=== PATIENT | female | born 1955 | race Caucasian/White ===

== ENCOUNTER 2016-07-07 10:34 | Emergency (ER) | payer MEDICARE, MEDICAID ==
[~2016-07-07] VITALS: Ht 165.1 cm; Wt 70.5 kg
[~2016-07-07 10:34] MED LIST: ALBU8.5H2 IH; ATEN50TA PO; BECL8.7A5 INH; CYCL10TA9 PO; ESTR0.45 PO; HYDR-3825 PO; HYDR25TA4 PO; LORA0.5T PO; MIRT15TA6 PO; OMEP-113 PO; SERT100T9 PO
[2016-07-07 10:47] VITALS: BP 179/80; PULSE 65; RESP 18; O2SAT 98
[2016-07-07] MEDS ORDERED: 0.9% Sodium Chloride 1,000 ML IV ONE (10:48)
[2016-07-07] MEDS ORDERED: HYDROmorphone 0.5 mg/0.5 mL iSecure Syringe IVPUSH PRN (10:50)
[2016-07-07] MEDS ORDERED: Ondansetron 2 mg/mL 2 mL Inj IVPUSH ONE (10:50)
--- NOTE | 2016-07-07 10:50 | ED.REPORT ---
HPI-Abd Pain F 40 and Over Date of Service Jul 07, 2016 ED Provider: Bjorn Butterfield MD This is a 60 year old female with a history of hiatal hernia and diverticulitis presenting to the ED via EMS complaining of epigastric abdominal pain that began 2 hours ago. Pt woke up with mild abdominal pain and cold symptoms including nasal congestion. Abdominal pain continued to progressively worsen with migration to the left side. She had one episode emesis en route. Denies chest pain, diarrhea, dysuria, hematemesis, hematochezia, constipation, fever, or chills. Abdominal pain is improved in the ED. Denies similar symptoms previously. Nursing Notes Stated Complaint: ABD PAIN/NAUSEA/VOMITING Chief Complaint: Female Abdominal Pain Nursing Notes Reviewed: Yes Allergies: Coded Allergies: NSAIDS (Non-Steroidal Anti-Inflamma (Verified Allergy, Unknown, 07/21/14) aspirin (Verified Allergy, Unknown, 07/21/14) bupropion (Verified Allergy, Unknown, 07/21/14) fluoxetine (Verified Allergy, Unknown, 07/21/14) Scheduled Atenolol (Atenolol) 50 Mg Tablet 50 MG PO DAILY Beclomethasone Dipropionate (Qvar) 8.7 Gm Aer.w.adap 1 PUFF INH BID Estrogens, Conjugated (Premarin) 0.45 Mg Tablet 0.45 MG PO DAILY Hydrochlorothiazide (Hydrochlorothiazide) 25 Mg Tablet 25 MG PO DAILY Hydrocodone-Acetaminophen 7.5-325 mg (Hydrocodone-Acetaminophen 7.5-325 mg) 1 Each Tablet 1-2 EACH PO QID Lorazepam (Lorazepam) 0.5 Mg Tablet 0.5 MG PO BID Mirtazapine (Mirtazapine) 15 Mg Tablet 15 MG PO HS Omeprazole Magnesium (Omeprazole) 20 Mg Capsule.dr 40 MG PO DAILY Sertraline HCl (Sertraline) 100 Mg Tablet 100 MG PO DAILY 1.5 TABS DAILY Scheduled PRN Albuterol HFA (Proair HFA) 8.5 Gm Hfa.aer.ad 2 PUFFS IH Q4 PRN PRN For Shortness of Breath Cyclobenzaprine (Cyclobenzaprine) 10 Mg Tablet 10 MG PO TID PRN PRN For Pain Ondansetron ODT (Zofran ODT) 4 Mg Tablet 4 MG PO Q4H PRN PRN For Nausea General Time Seen by MD: 10:47 Chief Complaint Abdominal pain Hx Obtained From: Patient Arrived By: Walk-in Sudden in Onset?: Yes Onset Occurred: 1 - 4 hours ago Symptom Duration: Since onset Severity: Current: Moderate Pertinent Negative: Pt denies other symptoms Recent Healthcare: No recent doctor visit, No recent hospitalization Similar Sx Previous: No Past Medical History Past Medical History Diverticulitis Hiatal hernia Past Surgical History Reports: Appendectomy Smoking History Current Every Day Smoker Ambulatory Status Independent Review of Systems Constitutional: Denies: Chills, Fever Respiratory: Denies: Shortness of breath Cardiovascular: Denies: Chest pain GI: Reports: Abdominal pain, Vomiting, Denies: Constipation, Diarrhea, Hematemesis, Hematochezia, Nausea Female: Denies: Dysuria, Hematuria, Urinary frequency Complete sys rev & neg: except as marked. Physical Exam Vital Signs Vital Signs (First) Date Time Temp Pulse Resp B/P Pulse Ox O2 Delivery O2 Flow Rate FiO2 07/07/16 10:47 37.1 65 18 179/80 98 07/07/16 12:11 Room Air Initial VS: Reviewed Head / Eyes: Atraumatic, Normocephalic, PERRL ENT: Mucous membranes moist, Conjunctiva normal, No scleral icterus Neck: Supple, Non-tender, Full range of motion Extremities: Vascular intact, Neuro intact, No swelling, No tenderness Skin: Warm, Dry, No cyanosis Neurologic: Alert, Oriented, Nonfocal Psychiatric: Mood/affect normal, Behavior normal, Normal thought content General/Constitutional: Awake, Alert Respiratory / Chest: Breath sounds NL, Breath sounds = bilat, No respiratory distress, No rales, No rhonchi, No wheezing, No stridor Cardiovascular: Heart rate NL, Regular rhythm, Heart sounds NL, No gallop, No murmurs, No rubs, Peripheral circulation NL Abdomen: Atraumatic, Soft, Non-tender, McBurney's non-tender, No guarding, No rebound, BS normoactive Back: Inspection NL, Non-tender, No CVA tenderness Interpretation & Diagnostics Lab Results Interpretation Result Diagram: 07/07/16 1100 07/07/16 1100 Test 07/07/16 11:00 White Blood Count 8.0th/mm3 (3.8-10.1) Red Blood Count 3.87mil/mm3 (3.90-5.20) Hemoglobin 12.7g/dL (12.0-15.6) Hematocrit 37.5% (35.0-46.0) Mean Corpuscular Volume 96.9fL (81-100) Mean Corpuscular Hemoglobin 32.8pg (27.0-35.0) Mean Corpuscular Hemoglobin Concent 33.9% (32.0-37.0) Red Cell Distribution Width 12.5% (12.3-15.4) Platelet Count 265bil/L (150-400) Neutrophils (%) (Auto) 78.7% (40-74) Lymphocytes (%) (Auto) 14.9% (14-46) Monocytes (%) (Auto) 4.9% (4-12) Eosinophils (%) (Auto) 0.9% (0-5) Basophils (%) (Auto) 0.3% (0-3) Sodium Level 138mEq/L (134-144) Potassium Level 3.6mEq/L (3.5-5.2) Chloride Level 98mEq/L (97-108) Carbon Dioxide Level 23mmol/L (18-29) Blood Urea Nitrogen 11mg/dL (8-27) Creatinine 0.70mg/dL (0.57-1.00) Estimat Glomerular Filtration Rate 121mL/min (>59) Glucose Level 116mg/dL (60-99) Calcium Level 9.0mg/dL (8.5-10.1) Magnesium Level 1.8mg/dL (1.6-2.6) Total Bilirubin 0.3mg/dL (0.0-1.2) Aspartate Amino Transf (AST/SGOT) 24U/L (0-50) Alanine Aminotransferase (ALT/SGPT) 18U/L (0-32) Alkaline Phosphatase 82U/L (25-165) Total Protein 7.3g/dL (6.4-8.4) Albumin 4.0g/dL (3.4-5.0) Lipase 24U/L (13-60) Hold Roth Top Tube Received (Received) Re-Eval/Medical Decision Med Decision/Clinical Course This is a 60 year old female with a history of hiatal hernia and diverticulitis presenting to the ED via EMS complaining of epigastric abdominal pain that began 2 hours ago. Pt woke up with mild abdominal pain and cold symptoms including nasal congestion. Abdominal pain continued to progressively worsen with migration to the left side. She had one episode emesis en route. Denies chest pain, diarrhea, dysuria, hematemesis, hematochezia, constipation, fever, or chills. Abdominal pain is improved in the ED. Upon arrival the patient is afebrile with stable vital signs in no apparent distress. Of note she is somewhat tachycardic. Given: zofran IV fluids Laboratory studies were notable for CBC without leukocytosis or anemia and CMP that was unremarkable. The patient's abdominal examination was completely benign without any evidence of an acute surgical abdominal process. She was treated with IV fluids and Zofran and reported significant symptomatic improvement. Serial abdominal examinations were benign. She now reports complete resolution of her symptoms. Her presentation does not suggest an acute surgical process. She is without any tenderness in the right upper quadrant to suggest biliary etiology. She is without any urinary symptoms or flank tenderness. The cause of her presentation remains unclear however her laboratory studies, physical exam findings and vital signs are all quite reassuring and at this time she has no concerning findings. I discussed with the patient management: Forward and we have opted to discharge home with plan for close follow-up and return precautions should she develop any recurrent or worsening symptoms. I feel that this is a reasonable course of action at this time. The patient was provided with altered return precautions discharged in good condition. She verbalized understanding and agreement with the plan. Counseled Regarding: Diagnosis, Lab results, Need for follow-up Discharge & Departure Primary Impression: Abdominal pain Abdominal location: epigastric Qualified Code: R10.13 - Epigastric pain Additional Impression: Nausea and vomiting Vomiting type: unspecified Vomiting Intractability: non-intractable Qualified Code: R11.2 - Nausea with vomiting, unspecified Disposition: Home Discharge Condition All VS Reviewed: Yes Condition: Stable Patient Instructions: Acute Abdominal Pain (ED) Additional Instructions: Thank you for seeking care at emergency room. It is difficult for us to make definitive diagnoses in the ED but we believe that you are experiencing symptoms of functional abdominal pain. This may be related to gas pain and less likely is related to your gallbladder. Our primary goal today in the ED was to evaluate you for any life-threatening conditions. Your evaluation was reassuring. You will be discharged with a prescription for Zofran as needed for nausea. Please continue to take the antacid medications as prescribed. Please call later today or tomorrow to arrange for appointment with the day guard. You should follow-up with your primary doctor and the GI specialist listed below. You should return to the ED immediately if you develop fevers, vomiting, cough, shortness of breath, chest pain, lightheadedness, weakness or any other concerning signs or symptoms. Thank you for letting us partake in your care today. Referrals: Akira Rushing MD (PCP) Kerwin Ledbetter MD Scribe Attestation Portions of this note were transcribed by Lizet Whitfield. I, Dr. Butterfield personally performed the history, physical exam and medical decision-making; I reviewed and confirmed the accuracy of the information in the transcribed note. Signed by: yaz Abad. 07/07/2016, 11:30. Bjorn Butterfield MD Jul 07, 2016 10:50 LIZET WHITFIELD Jul 07, 2016 11:08
[2016-07-07 11:06] LABS: BASOPHILS % (AUTO) 0.3 % (0-3); EOSINOPHILS % (AUTO) 0.9 % (0-5); MONOCYTES % (AUTO) 4.9 % (4-12); Mean Corpuscular Hemoglobin 32.8 pg (27.0-35.0); Mean Corpuscular Volume 96.9 fL (81-100); NEUTROPHILS % (AUTO) 78.7 % (40-74); Platelet Count 265 bil/L (150-400)
[2016-07-07 11:30] LABS: Magnesium 1.8 mg/dL (1.6-2.6)
[2016-07-07] MEDS ORDERED: ONDA4TAB9 PO (11:57)
[2016-07-07 12:11] VITALS: BP 135/49; PULSE 65; RESP 12; O2SAT 94
[2016-07-07 12:16] VITALS: BP 135/49; PULSE 65; RESP 12; O2SAT 94
== END 2016-07-07 12:18 | disposition home or self-care (01) ==
LOC: EDBD 10:34 → SED 10:34
DX: R10.13 Epigastric pain (principal); R11.2 Nausea with vomiting, unspecified; F17.200 Nicotine dependence, unspecified, uncomplicated; Z88.8 Allergy status to other drugs, medicaments and biological substances